=== PATIENT | male | born 1975 | race Caucasian/White ===

== ENCOUNTER 2017-06-04 13:35 | Emergency (ER) | payer MEDICAID ==
[~2017-06-04] VITALS: Ht 165.1 cm; Wt 59.1 kg
[2017-06-04] MEDS ORDERED: FLUORESCEIN SODIUM 1 MG STRIP ONE (14:14)
[2017-06-04] MEDS ORDERED: IBUPROFEN 800 MG TABLET PO ONE (14:15)
[2017-06-04] MEDS ORDERED: SILVER SULFADIAZINE 1% 25 GM CREAM TP ONE (14:15)
[2017-06-04] MEDS ORDERED: GENTAMICIN SULFATE 0.3% OPHTHALMIC SOLUTION 5 ML OD ONE (14:45)
[2017-06-04 14:52] VITALS: BP 127/77
== END 2017-06-04 15:02 | disposition home or self-care (01) ==
LOC: EMS 13:38
DX: T23.101A Burn of first degree of right hand, unspecified site, initial encounter (principal); H57.11 Ocular pain, right eye; X14.1XXA Other contact with hot air and other hot gases, initial encounter; Y93.89 Activity, other specified; Y92.89 Other specified places as the place of occurrence of the external cause; Y99.8 Other external cause status
CPT/HCPCS: 16000; 99284; Z7610; 16020